=== PATIENT | female | born 1970 | race Caucasian/White ===

== ENCOUNTER → 2021-10-14 | Outpatient (CLI) | payer OTHER ==
[~2021-10-14] MED LIST: ATOR20 PO; DOXY100 PO; GLIM4 PO; HYDACE5 PO; HYDACE5325 PO; LOSA25 PO; METF850 PO
[2021-10-15 17:55] LABS: CORONAVIRUS (COVID19) CSH-NRL Negative (Negative)
== END | disposition home or self-care (01) ==
LOC: LAB SHORT 09:02
PROVIDERS: Physician Assistant Medical
DX: Z20.9 Contact with and (suspected) exposure to unspecified communicable disease (principal)
CPT/HCPCS: U0003

== ENCOUNTER → 2023-01-26 | Outpatient (CLI) | payer OTHER ==
[2023-01-27 10:45] LABS: Candida species (DNA Probe) Positive (NEGATIVE); G. vaginalis (DNA Probe) Negative (NEGATIVE); T. vaginalis (DNA Probe) Negative (NEGATIVE)
== END | disposition home or self-care (01) ==
LOC: LAB 11:20 → LAB SHORT 11:20
PROVIDERS: Obstetrics & Gynecology
DX: N76.0 Acute vaginitis (principal)
CPT/HCPCS: 87480; 87510; 87660

== ENCOUNTER → 2023-03-05 | Outpatient (CLI) | payer OTHER | END | disposition home or self-care (01) | LOC: PLD 07:43 → LAB SHORT 07:43 | DX: N84.0 Polyp of corpus uteri (principal) | CPT/HCPCS: 88305 ==

== ENCOUNTER → 2023-08-03 | Outpatient (CLI) | payer OTHER | LOC: LAB 11:55 → LAB SHORT 11:55 | DX: N89.8 Other specified noninflammatory disorders of vagina (principal) | CPT/HCPCS: 87070; 87205 ==

== ENCOUNTER → 2023-10-06 | Outpatient (CLI) | payer OTHER ==
[2023-10-07 12:19] LABS: Candida species (DNA Probe) Positive (NEGATIVE); G. vaginalis (DNA Probe) Negative (NEGATIVE); T. vaginalis (DNA Probe) Negative (NEGATIVE)
== END ==
LOC: LAB SHORT 14:20
PROVIDERS: Family Medicine
DX: N76.0 Acute vaginitis (principal)
CPT/HCPCS: 87480; 87510; 87660

== ENCOUNTER → 2024-04-19 | Outpatient (CLI) | payer OTHER ==
[2024-04-19 14:40] LABS: Bacterial Vaginosis PCR Negative (NEGATIVE); Candida Group, PCR NOT DETECTED (NOT DETECT)
[2024-04-19 14:44] LABS: Candida glabrata-krusei, PCR DETECTED (NOT DETECT)
== END | disposition home or self-care (01) ==
LOC: LAB SHORT 10:30
PROVIDERS: Obstetrics & Gynecology
DX: N76.0 Acute vaginitis (principal)
CPT/HCPCS: 87481; 87661; 87801

== ENCOUNTER 2024-05-18 10:13 | Day surgery (SDC) | payer OTHER ==
[~2024-05-18] VITALS: Ht 170.2 cm; Wt 114.7 kg
[2024-05-18] MEDS ORDERED: ESTRADIOL42.5 GM (10:31)
[2024-05-18] MEDS ORDERED: ALOGLIPTIN25 M7 PO (10:31)
[2024-05-18] MEDS ORDERED: FentaNYL Citrate 50 MCG/ML 2 ML Injection ONE (10:49)
[2024-05-18] MEDS ORDERED: Midazolam HCl 1MG / ML 2ML Vial ONE (10:49)
[2024-05-18] MEDS ORDERED: Lactated Ringer's 1,000 ML IV ONE ×2 (11:06→11:09)
[2024-05-18] MEDS ORDERED: Ondansetron HCl 2 MG / ML 2ML Vial ONE (11:20)
[2024-05-18] MEDS ORDERED: Dexamethasone Sod Phos 10 MG/ML 1ML VIAL ONE (11:20)
[2024-05-18] MEDS ORDERED: OxyCODONE 5 mg/Acetamin 325 mg TABLET ONE (12:27)
[2024-05-18 12:35] VITALS: BP 116/78
--- NOTE | 2024-05-18 13:39 | NUR ---
05/18/24 1339 Tracie Gaines TOTAL FLUID DEFICIT 135ML
== END 2024-05-18 12:53 | disposition home or self-care (01) ==
LOC: ORSCSDS 10:13
PROVIDERS: Obstetrics & Gynecology
PROC: 0UDB8ZX Extraction of Endometrium, Via Natural or Artificial Opening Endoscopic, Diagnostic (ICD-10-PCS; principal; 2024-05-18 11:15)
DX: N84.0 Polyp of corpus uteri (principal); R10.2 Pelvic and perineal pain; I10 Essential (primary) hypertension; E78.5 Hyperlipidemia, unspecified; E11.9 Type 2 diabetes mellitus without complications; K21.9 Gastro-esophageal reflux disease without esophagitis; E66.9 Obesity, unspecified; Z68.39 Body mass index [BMI] 39.0-39.9, adult; Z79.84 Long term (current) use of oral hypoglycemic drugs; Z79.899 Other long term (current) drug therapy; Z98.84 Bariatric surgery status
CPT/HCPCS: 82947; 88305; A9270; J1100; J2250; J2405; J3010

== ENCOUNTER 2024-08-08 07:06 | Day surgery (SDC) | payer OTHER ==
[~2024-08-08] VITALS: Ht 168 cm; Wt 111.3 kg
[~2024-08-08 07:06] MED LIST changes: +ALOGLIPTIN25 M7 PO; +ESTRADIOL42.5 GM; +METF500 PO; -METF850 PO; +METO50 PO; +NS 500 ML IV SCH
[2024-08-08] MEDS ORDERED: JARDIANCE10 MG PO (07:46)
[2024-08-08] MEDS ORDERED: Crestor40 MG PO (07:47)
[2024-08-08] MEDS ORDERED: Acerola C500 MG PO (07:48)
[2024-08-08] MEDS ORDERED: ESTRADIOL42.5 GM TOP (07:48)
[2024-08-08] MEDS ORDERED: VITAMIN D32000 UNI1 PO (07:49)
[2024-08-08] MEDS ORDERED: [UNRECOGNIZED DRUG - CODE] PO (07:50)
[2024-08-08 08:00] VITALS: BP 124/83
--- NOTE | 2024-08-08 08:12 | NUR ---
History, Chart, Medications and Allergies reviewed before start of procedure. Patient up to Ambulate independently. Gait steady. Pre-Op teaching done. Pt verbalizes understanding. Patient confirms NPO status and agrees with scheduled surgery. Patient States Post-Procedure ride home has been arranged.
[2024-08-08] MEDS ORDERED: propofoL 40 ML IV ONE (08:31)
--- NOTE | 2024-08-08 08:44 | NUR ---
08/08/24 0844 [place] History, Chart, Medications and Allergies reviewed before start of procedure.MONITOR INTACT WITH CONTINUOUS PULSE OXIMETRY, CONTINUOUS END TITAL CO2, AND INTERMITTENT BLOOD PRESSURE.3-LEAD EKG REVIEWED WITH PHYSICIAN PRIOR TO START OF PROCEDURE.O2 VIA POM INTACT THROUGHOUT SEDATION/PROCEDURE.See Anesthesia record.
[2024-08-08] MEDS ORDERED: NS 500 ML IV ONE (09:06)
[2024-08-08 09:14] VITALS: BP 127/83
--- NOTE | 2024-08-08 09:38 | NUR ---
Discharge instructions reviewed with patient. Patient verbalizes understanding. Copy given to patient to take home. Patient States Post-Procedure ride home has been arranged. Discharged via wheelchair to private car for ride home.
== END 2024-08-08 09:30 | disposition home or self-care (01) ==
LOC: ORSCMMR 07:06 → ORD 08:30 → ORSCMMR 08:30
PROVIDERS: Internal Medicine Gastroenterology
PROC: 0DBM8ZX Excision of Descending Colon, Via Natural or Artificial Opening Endoscopic, Diagnostic (ICD-10-PCS; principal; 2024-08-08 08:30)
PROC: 0DBN8ZX Excision of Sigmoid Colon, Via Natural or Artificial Opening Endoscopic, Diagnostic (ICD-10-PCS; principal; 2024-08-08 08:30)
PROC: 0DB68ZX Excision of Stomach, Via Natural or Artificial Opening Endoscopic, Diagnostic (ICD-10-PCS; principal; 2024-08-08 08:30)
PROC: 0DB48ZX Excision of Esophagogastric Junction, Via Natural or Artificial Opening Endoscopic, Diagnostic (ICD-10-PCS; principal; 2024-08-08 08:30)
PROC: 0DB98ZX Excision of Duodenum, Via Natural or Artificial Opening Endoscopic, Diagnostic (ICD-10-PCS; principal; 2024-08-08 08:30)
DX: R10.33 Periumbilical pain (principal); K63.5 Polyp of colon; K44.9 Diaphragmatic hernia without obstruction or gangrene; R19.4 Change in bowel habit; Z98.84 Bariatric surgery status; Z87.19 Personal history of other diseases of the digestive system; K21.9 Gastro-esophageal reflux disease without esophagitis; E11.9 Type 2 diabetes mellitus without complications; I10 Essential (primary) hypertension; E78.00 Pure hypercholesterolemia, unspecified; E66.01 Morbid (severe) obesity due to excess calories; Z68.39 Body mass index [BMI] 39.0-39.9, adult; Z79.84 Long term (current) use of oral hypoglycemic drugs; Z79.899 Other long term (current) drug therapy
CPT/HCPCS: 82947; J2704; J7040

== ENCOUNTER → 2025-07-09 | Outpatient (CLI) | payer OTHER ==
[~2025-07-09] MED LIST changes: +Acerola C500 MG PO; +Crestor40 MG PO; +ESTRADIOL42.5 GM TOP; +JARDIANCE10 MG PO; -NS 500 ML IV SCH; +VITAMIN D32000 UNI1 PO; +[UNRECOGNIZED DRUG - CODE] PO
[2025-07-09 09:17] LABS: Anion Gap 10.0 mmol/L (3-11); Blood Urea Nitrogen 15.0 mg/dL (8-24); CO2, Blood 30.0 mmol/L (21-32); Calcium, Blood 8.9 mg/dL (8.5-10.1); Chloride, Blood 104.0 mmol/L (98-108); Creatinine, Blood 0.76 mg/dL (0.40-1.00); Glucose, Blood 147.0 mg/dL (70-99); Potassium, Blood 4.4 mmol/L (3.5-5.5); Sodium, Blood 140.0 mmol/L (136-145)
== END | disposition home or self-care (01) ==
LOC: LAB 09:06 → LAB SHORT 09:06
PROVIDERS: Chiropractor
DX: E11.69 Type 2 diabetes mellitus with other specified complication (principal)
CPT/HCPCS: 80048; 83036